=== PATIENT | female | born 1925 | race Caucasian/White ===

== ENCOUNTER 2016-12-02 01:43 | Emergency (ER) | payer BC ==
[~2016-12-02] VITALS: Ht 157.5 cm; Wt 54.0 kg
[~2016-12-02 01:43] MED LIST: ALEN70TA4 PO; ASPI325T45 PO; ATOR-22 PO; CLX20 PO; CYAN100020 PO; FERR325T18 PO; LEVO50TA6 PO; LORA-741 PO; MULT-845 PO; PRLSR20 PO
[2016-12-02 01:51] VITALS: TEMP 37; Ht 157.5 cm; Wt 54.0 kg
[2016-12-02] MEDS ORDERED: DIPHTHERIA/TETANUS/PERTUSSIS 0.5 ML SYR/VIAL IM. ONE (02:00)
[2016-12-02 02:35] LABS: BASO % 0.5 %; BASO ABS # 0.04 K/uL (0-0.2); COMPLETE YES; EOS % 1.4 %; HEMATOCRIT 40.5 % (37-47); IG% 0.2 %; LYMPH % 14.4 %; LYMPH ABS # 1.19 K/uL (1.2-3.4); MEAN CELL VOLUME 98.8 fL (80-100); MEAN CORPUSCULAR HEMOGLOBIN 33.4 pg (25-34); MEAN CORPUSCULAR HGB CONC 33.8 g/dl (32-36); MEAN PLATELET VOLUME 10.1 fL (7.4-10.4); MONO % 5.8 %; NEUT % 77.7 %; PLATELET COUNT 250 K/uL (130-400); WHITE BLOOD COUNT 8.28 K/uL (4.8-10.8)
[2016-12-02 02:56] LABS: PROTHROMBIN TIME (PATIENT) 10.7 SECONDS (9.0-12.0)
[2016-12-02 02:59] LABS: ALT/SGPT 20 U/L (12-78); AST/SGOT 14 U/L (15-37); BLOOD UREA NITROGEN 21 mg/dl (7-18); BUN/CREATININE RATIO 22.5 (10-20); CALCIUM 8.6 mg/dl (8.5-10.1); CARBON DIOXIDE 30 mmol/L (21-32); CHLORIDE 102 mmol/L (98-107); CREATININE 0.95 mg/dl (0.60-1.20); GLUCOSE 106 mg/dl (70-99); MAGNESIUM 2.1 mg/dl (1.8-2.4); POTASSIUM 4.1 mmol/L (3.5-5.1); SODIUM 140 mmol/L (136-145)
[2016-12-02 03:02] LABS: ALKALINE PHOSPHATASE 55 U/L (45-117)
--- NOTE | 2016-12-02 03:10 | EMERGENCY ROOM VISIT NOTE ---
History Report prepared by Aurora: Mali Madrigal Under the Supervision of: Dr. Maxwell Haro M.D. 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 She is not sure what caused her fall. She thinks that she tripped over her feet while trying to pivot. She denies passing out or losing consciousness. She was not feeling weak. She was able to get herself into the kitchen and call an ambulance to bring her to the ED. She states that she was only on the ground for 10-15 minutes before EMS arrived. The patient reports right wrist pain and swelling. She reports burning pain with ROM of the right wrist. The patient denies elbow pain, leg pain, hip pain, chest pain, neck pain, and headache. She does not use oxygen at home. Source of History: patient, EMS Onset: CUSTODIAN MANAGER Position: other (global - fall) Quality: burning Timing: other (episode) Modifying Factors (Worsening): movement Associated Symptoms: No LOC, No chest pain, No headache, No neck pain, No weakness Note: Pt reports right wrist pain and swelling. Review of Systems See HPI for pertinent positives & negatives. A total of 10 systems reviewed and were otherwise negative. Past Medical & Surgical Medical Problems: (1) Anxiety (2) CKD (chronic kidney disease), stage III (3) GERD (gastroesophageal reflux disease) (4) HLD (hyperlipidemia) (5) HTN (hypertension) (6) Left Femoral Neck Fracture (7) Nocturnal hypoxia (8) Osteoporosis (9) Urethral stricture Surgical Problems: (1) H/O hernia repair (2) H/O hysterectomy with oophorectomy (3) H/O total hip arthroplasty Family History Hypertension Social History Smoking Status: Never Smoker Alcohol Use: none Drug Use: none Marital Status: Housing Status: lives alone Occupation Status: retired Current/Historical Medications Scheduled Alendronate Sodium (Fosamax), 70 MG PO WK Aspirin (Aspirin), 325 MG PO Q2D Atorvastatin (Lipitor), 20 MG PO DAILY Citalopram (Citalopram Hydrobromide), 20 MG PO DAILY Cyanocobalamin (Vitamin B12), 2,000 MCG PO DAILY Ferrous Gluconate (Ferrous Gluconate), 324 MG PO DAILY Levothyroxine Sodium (Levothyroxine Sodium), 50 MCG PO DAILY Multiple Vitamins W/ Minerals (Centrum Silver Adult 50+), 1 TAB PO DAILY Omeprazole (Prilosec), 20 MG PO QAM Scheduled PRN Lorazepam (Ativan), 0.25-0.5 MG PO BID PRN for Anxiety Allergies Coded Allergies: No Known Allergies (Unverified , 09/12/16) Physical Exam Vital Signs Date Time Temp Pulse Resp B/P Pulse Ox O2 Delivery O2 Flow Rate FiO2 12/02/16 04:01 84 20 147/102 93 Room Air 12/02/16 01:51 37.0 83 22 177/121 98 Room Air Physical Exam GENERAL: Patient is elderly well appearing and in minimal distress. HEENT: Normocephalic, 3 cm left scalp laceration mild active bleeding not grossly contaminated, mucous membranes moist, no nasal congestion, no scleral icterus. NECK: No stridor, no adenopathy, no meningismus, trachea is midline. LUNGS: No dyspnea. Clear to auscultation and equal bilaterally. No wheeze, no rhonchi. HEART: Regular rate and rhythm. No murmurs, rubs, gallops appreciated. ABDOMEN: Soft, nontender, bowel sounds positive, no masses appreciated, no peritonitis. BACK: No midline tenderness, no CVA tenderness EXTREMITIES: Large swelling to the right distal forearm extending onto the wrist , mild pain with ROM. She has bruising of the right hand. Healing bruise/scab left inner ankle, nontender, FROM. NEUROLOGIC: Alert and oriented, no acute motor or sensory deficits, no focal weakness, cranial nerves grossly intact. SKIN: No rash, no jaundice, no diaphoresis. Medical Decision & Procedures ER Provider Diagnostic Interpretation: X ray results are stated below per my interpretation: Chest: 1 view: No infiltrate, no effusion, normal cardiac border. 2 view forearm: dorsal distal hematoma, no fracture or dislocation 3 view right wrist: dorsal soft tissue swelling, no fracture or dislocation, significant arthritic changes. Radiology results as stated below per my review and radiologist interpretation: CT HEAD: Comparison: CT dated 09/06/2016 No acute intracranial hemorrhage or other acute intracranial abnormality. Left frontal scalp hematoma. No skull fracture. Stable senescent changes of the brain. CT C SPINE: Comparison: CT dated 09/06/2016. No acute fracture or traumatic subluxation of the cervical spine. Stable multilevel degenerative changes of the cervical spine. Stable mild anterolisthesis at C3-4 and C4-5. Radiologist: La Nena Arboleda MD Laboratory Results 12/02/16 02:25 Red Blood Count 4.10, Mean Corpuscular Volume 98.8, Mean Corpuscular Hemoglobin 33.4, Mean Corpuscular Hemoglobin Concent 33.8, Mean Platelet Volume 10.1, Neutrophils (%) (Auto) 77.7, Lymphocytes (%) (Auto) 14.4, Monocytes (%) (Auto) 5.8, Eosinophils (%) (Auto) 1.4, Basophils (%) (Auto) 0.5, Neutrophils # (Auto) 6.43, Lymphocytes # (Auto) 1.19, Monocytes # (Auto) 0.48, Eosinophils # (Auto) 0.12, Basophils # (Auto) 0.04 12/02/16 02:25 Test 12/02/16 02:25 White Blood Count 8.28 K/uL (4.8-10.8) Red Blood Count 4.10 M/uL (4.2-5.4) Hemoglobin 13.7 g/dL (12.0-16.0) Hematocrit 40.5 % (37-47) Mean Corpuscular Volume 98.8 fL (80-100) Mean Corpuscular Hemoglobin 33.4 pg (25-34) Mean Corpuscular Hemoglobin Concent 33.8 g/dl (32-36) Platelet Count 250 K/uL (130-400) Mean Platelet Volume 10.1 fL (7.4-10.4) Neutrophils (%) (Auto) 77.7 % Lymphocytes (%) (Auto) 14.4 % Monocytes (%) (Auto) 5.8 % Eosinophils (%) (Auto) 1.4 % Basophils (%) (Auto) 0.5 % Neutrophils # (Auto) 6.43 K/uL (1.4-6.5) Lymphocytes # (Auto) 1.19 K/uL (1.2-3.4) Monocytes # (Auto) 0.48 K/uL (0.11-0.59) Eosinophils # (Auto) 0.12 K/uL (0-0.5) Basophils # (Auto) 0.04 K/uL (0-0.2) RDW Standard Deviation 48.9 fL (36.4-46.3) RDW Coefficient of Variation 13.7 % (11.5-14.5) Immature Granulocyte % (Auto) 0.2 % Immature Granulocyte # (Auto) 0.02 K/uL (0.00-0.02) Prothrombin Time 10.7 SECONDS (9.0-12.0) Prothromb Time International Ratio 1.0 (0.9-1.1) Activated Partial Thromboplast Time 24.7 SECONDS (21.0-31.0) Partial Thromboplastin Ratio 1.0 Anion Gap 8.0 mmol/L (3-11) Est Creatinine Clear Calc Drug Dose 31.8 ml/min Estimated GFR () 61.5 Estimated GFR (Non- 53.1 BUN/Creatinine Ratio 22.5 (10-20) Calcium Level 8.6 mg/dl (8.5-10.1) Magnesium Level 2.1 mg/dl (1.8-2.4) Total Bilirubin 0.7 mg/dl (0.2-1) Direct Bilirubin 0.1 mg/dl (0-0.2) Aspartate Amino Transf (AST/SGOT) 14 U/L (15-37) Alanine Aminotransferase (ALT/SGPT) 20 U/L (12-78) Alkaline Phosphatase 55 U/L (45-117) Troponin I < 0.015 ng/ml (0-0.045) Total Protein 7.4 gm/dl (6.4-8.2) Albumin 4.3 gm/dl (3.4-5.0) Laboratory results as reviewed by me. Medications Administered Medications (Trade) Dose Ordered Sig/Thompson Route Start Time Stop Time Status Last Admin Dose Admin Diphtheria/ Pertussis/Tetanus Vacc (Adacel Inj) 0.5 ml ONCE ONCE IM. 12/02/16 02:00 12/02/16 02:01 DC 12/02/16 03:18 0.5 ML ECG Indication: other Rate (beats per minute): 80 Rhythm: normal sinus Findings: T-wave inversion (Lateral), no acute ischemic change, no ectopy Comparison ECG Date: 11/29/2015 Change: no significant change ED Course 0145: The patient was evaluated in room A10. A complete history and physical exam was performed. 0200: Adacel 0.5 ml IM 0314: I reassessed the patient at this time. She is feeling better and does not want to stay in the hospital. 0330: Lidocaine Inj 0403: I reassessed the patient at this time. She is feeling better and resting comfortably. I discussed the results and treatment plan with the patient. I answered all pertaining questions that she had. She expressed understanding and verbalized agreement. The patient will be discharged home. Medical Decision Differential: Intracranial Injury, Cervical Injury, Intrathoracic/Abdominal Injury, Neurologic Injuries, Fractures/Dislocations, Lacerations, Tetanus Status , amongst other pathologies entertained. 89 yr old female arrives with complaint of left scalp contusion/laceration s/p fall. Initially states she just fell to ground but then admits she tripped over her own feet. She is adamant she tripped over own feet and states she did not pass out, did not get lightheaded, did not get shob, and did not have chest pain/weakness. She has normal work-up without acute findings. CT head/cspine negative. Unclear last tetanus thus adacel given. Laceration stapled by Gauri Mireles PA-C with excellent closure. Patient with stable vitals and after 2 hours still wishes to go home. Daughter states patient is thinking clearly and at baseline. Aware of instructions re fall risk and laceration repair and head injury. Impression Primary Impression: Fall Additional Impressions: Contusion of multiple sites Scalp laceration Contusion of wrist, right Head injury, closed [id number] (DTP) vaccination Scribe Attestation The scribe's documentation has been prepared under my direction and personally reviewed by me in its entirety. I confirm that the note above accurately reflects all work, treatment, procedures, and medical decision making performed by me. Departure Information Dispostion Home / Self-Care Referrals Tresa Lake M.D. (PCP) Patient Instructions ED Laceration Scalp Stitch Or Stap, ED Mechanical Fall, My [facility] Additional Instructions Follow up with your Primary Care Provider or ED in 7-10 days for staple removal. Problem Qualifiers Primary Impression: Fall Encounter type: initial encounter Qualified Codes: W19.XXXA - Unspecified fall, initial encounter Additional Impressions: Scalp laceration Encounter type: initial encounter Qualified Codes: S01.01XA - Laceration without foreign body of scalp, initial encounter Head injury, closed Encounter type: initial encounter Qualified Codes: S09.90XA - Unspecified injury of head, initial encounter
[2016-12-02] MEDS ORDERED: LIDOCAINE/EPINEPHRINE 1% 20 ML VIAL INFIL ONE (03:30)
--- NOTE | 2016-12-02 04:00 | EMERGENCY ROOM VISIT NOTE ---
ED Visit Note I was asked by Dr. Haro to perform scalp laceration repair. The patient is an 89-year-old female with a 3 cm curved laceration to the left parietal aspect of the scalp. Verbal consent was obtained to perform the procedure. Using sterile technique the wound was cleaned with Betadine. The area was sterilely draped. 4 ml of 1 % buffered lidocaine was used to anesthetize the patient's scalp. Once the patient was numb, the wound was copiously irrigated under pressure with sterile saline. The wound was explored and there were no deep structures present. The laceration was repaired using 5 rc with the wound edges being well approximated. The patient tolerated the procedure well. The bleeding stopped. The area was cleaned with sterile saline and dressed with bacitracin ointment.
[2016-12-02 04:01] VITALS: BP 147/102; PULSE 84; O2SAT 93
--- NOTE | 2016-12-02 06:41 | DIAGNOSTIC IMAGING REPORT ---
CT OF THE CERVICAL SPINE CLINICAL HISTORY: Neck pain status post trauma COMPARISON STUDY: 09/06/2016 CT DOSE: 932.13 mGy.cm TECHNIQUE: CT scan of the cervical spine was performed from the skull base to the thoracic inlet. Images are reviewed in the axial, sagittal, and coronal planes. IV contrast was not administered for this examination. FINDINGS: The visualized portions of the lung apices reveal no evidence of pneumothorax. The prevertebral soft tissues are normal. No fractures or traumatic subluxations are visualized. There are multilevel degenerative changes. There is 2.2 mm of anterior subluxation of C3 on C4. There is 3.1 mm of anterior subluxation of C4 on C5. These findings are felt to be degenerative, and remain stable. IMPRESSION: No evidence of acute fracture or traumatic subluxation. Electronically signed by: Titi Manzano M.D. 12/02/2016 6:39 AM Dictated Date/Time: 12/02/2016 6:37 AM
--- NOTE | 2016-12-02 07:10 | DIAGNOSTIC IMAGING REPORT ---
CHEST ONE VIEW PORTABLE CLINICAL HISTORY: Altered mental status. Fall. COMPARISON STUDY: Chest radiograph November 29, 2015. FINDINGS: There is no pneumothorax or pleural effusion. Linear bibasilar opacities favor atelectasis or scarring. Moderate cardiomegaly is unchanged. There is no evidence for pulmonary edema. There is a suspected left lower rib fracture which is mildly displaced. This may reflect the eighth rib. There may be additional left lower rib fractures. IMPRESSION: 1. Suspected mildly displaced left lower rib fractures, likely acute to subacute. No pneumothorax. 2. Bibasilar opacities which favor atelectasis or scarring. 3. Moderate cardiomegaly. Electronically signed by: Shai Santos M.D. 12/02/2016 7:09 AM Dictated Date/Time: 12/02/2016 7:05 AM
--- NOTE | 2016-12-02 07:17 | DIAGNOSTIC IMAGING REPORT ---
CT OF THE HEAD WITHOUT CONTRAST CLINICAL HISTORY: Altered mental status. Fall. COMPARISON STUDY: Head CT September 12, 2016. TECHNIQUE: Helical axial images of the head were obtained without IV contrast. Automated exposure control was utilized for the study. FINDINGS: No acute intracranial hemorrhage, midline shift or mass effect is present. Ventricular system is stable. Moderate atrophy is unchanged. Extensive white matter hypodensities unchanged and suggest small vessel disease. There is no calvarial fracture. A left sided scalp contusion with laceration is noted. IMPRESSION: 1. No acute intracranial findings. 2. Left-sided scalp contusion and laceration. No calvarial fracture. Electronically signed by: Shai Santos M.D. 12/02/2016 7:16 AM Dictated Date/Time: 12/02/2016 7:11 AM
--- NOTE | 2016-12-02 07:22 | DIAGNOSTIC IMAGING REPORT ---
RIGHT FOREARM 2 VIEWS ROUTINE CLINICAL HISTORY: Right forearm injury. COMPARISON: Right forearm radiograph September 06, 2016. FINDINGS: Slight cortical regularity of the radial aspect of the distal right radius is likely within normal limits. No acute fracture of the right radius or ulna is identified. There is soft tissue swelling of the distal right forearm and wrist. IMPRESSION: No acute fracture of the right radius or ulna. Electronically signed by: Shai Santos M.D. 12/02/2016 7:20 AM Dictated Date/Time: 12/02/2016 7:18 AM
--- NOTE | 2016-12-02 07:23 | DIAGNOSTIC IMAGING REPORT ---
RIGHT WRIST MIN 3 VIEWS ROUTINE CLINICAL HISTORY: Right wrist injury. COMPARISON: Right forearm radiographs September 06, 2016. FINDINGS: No acute fracture of the right wrist is identified. Alignment is anatomic. Note is made of marked soft tissue swelling overlying the dorsal aspect of the distal right forearm and wrist. IMPRESSION: 1. No acute fracture or dislocation of the right wrist. 2. Marked soft tissue swelling suggestive of a contusion of the dorsal aspect of the distal right forearm and wrist. Electronically signed by: Shai Santos M.D. 12/02/2016 7:22 AM Dictated Date/Time: 12/02/2016 7:21 AM
== END 2016-12-02 04:25 | disposition home or self-care (01) ==
LOC: EDBD 01:43 → C.EDA 01:44
DX: S01.01XA Laceration without foreign body of scalp, initial encounter (principal); S60.211A Contusion of right wrist, initial encounter; T14.8 Other injury of unspecified body region; M79.89 Other specified soft tissue disorders; Z23 Encounter for immunization; N18.3 Chronic kidney disease, stage 3 (moderate); I12.9 Hypertensive chronic kidney disease with stage 1 through stage 4 chronic kidney disease, or unspecified chronic kidney disease; E78.5 Hyperlipidemia, unspecified; M81.0 Age-related osteoporosis without current pathological fracture; K21.9 Gastro-esophageal reflux disease without esophagitis; F41.9 Anxiety disorder, unspecified; Z79.82 Long term (current) use of aspirin; Z79.899 Other long term (current) drug therapy; Z82.49 Family history of ischemic heart disease and other diseases of the circulatory system; W19.XXXA Unspecified fall, initial encounter